=== PATIENT | female | born 1985 | race African-American/Black ===

== ENCOUNTER 2016-05-01 11:58 | Emergency (ER) | payer OTHER ==
[~2016-05-01 11:58] MED LIST: DOCU10CA PO; FERR325T3 PO; FIORCET PO; IBUP80TA PO; IRONTAB3; PERCOCET PO; PRENATAL VITAMIN PO
[2016-05-01] MEDS ORDERED: ASPIRIN 81 MG CHEW TABLET As Ordered ONE (12:36)
--- NOTE | 2016-05-01 12:48 | REP ---
Clinical: Acute chest pain . Comparison: None . Technique: PA and lateral. Findings: The mediastinum and cardiac silhouette are normal. The lung quijano are clear and without acute consolidation, effusion, or pneumothorax. The skeletal structures are intact and normal. Impression: 1. No acute cardiopulmonary process. Signed by Yuriy Ding MD 05/01/2016 12:39 P
[2016-05-01 13:04] LABS: INR 1.05
[2016-05-01 13:15] LABS: BASO % 0.7 % (0.0-1.0); EOS # 0.3 K/mm3 (0.0-0.50); LARGE UNSTAINED CELL # 0.1 K/mm3 (0.0-0.4); LARGE UNSTAINED CELL % 1.8 % (0.0-4.0); LYMPH # 1.3 K/mm3 (1.5-4.5); LYMPH % 24.9 % (24.0-44.0); MEAN CORPUSCULAR HEMOGLOBIN 26.6 pg (27.0-33.0); MEAN CORPUSCULAR HGB CONC 32.2 g/dl (32.0-36.5); MEAN CORPUSCULAR VOLUME 82.7 fl (80.0-96.0); MONO # 0.3 K/mm3 (0.0-0.8); MONO % 4.9 % (0.0-5.0); NEUTROPHILS # 3.1 K/mm3 (1.8-7.7); NEUTROPHILS % 61.6 % (36.0-66.0); PLATELET COUNT, AUTOMATED 153 k/mm3 (150-450); RED CELL DISTRIBUTION WIDTH 14.1 % (11.5-14.5); WHITE BLOOD COUNT 5.1 K/mm3 (4.0-10.0)
[2016-05-01 13:19] LABS: ANION GAP 8 MEQ/L (8-16); BLOOD UREA NITROGEN 10 MG/DL (7-18); CALCIUM LEVEL 9.3 MG/DL (8.5-10.1); CARBON DIOXIDE LEVEL 25 MEQ/L (21-32); CHLORIDE LEVEL 108 MEQ/L (98-107); CREATININE FOR GFR 0.77 MG/DL (0.55-1.02); GLOMERULAR FILTRATION RATE > 60.0 (>60); GLUCOSE, FASTING 81 MG/DL (70-105); MAGNESIUM LEVEL 1.7 MG/DL (1.8-2.4); POTASSIUM SERUM 3.6 MEQ/L (3.5-5.1); SODIUM LEVEL 141 MEQ/L (136-145); T UPTAKE 35 % (30-39); THYROXINE (T4) 8.4 UG/DL (4.5-12.0)
--- NOTE | 2016-05-01 13:48 | EDDOCDS ---
Nurse's Notes [facility] Name: Pinky Diop Age: 30 yrs Sex: Female : 1985 Arrival Date: 05/01/2016 Time: 11:58 Bed 13 Private MD: Mayela Burk L Diagnosis: Chest pain, unspecified Presentation: 05/01 12:08 Presenting complaint: Patient states: Pt presents stating palpations x 3 days has old dls hx of same at 2am this morning developed left sided chest pain radiating down left arm lasted 10 minutes denies pain in triage. Aspirin was not taken prior to arrival. Adult Sepsis Screening: The patient does not have new or worsening altered mentation. Patient's respiratory rate is less than 22. Systolic blood pressure is greater than 100. Patient has a qSOFA score of 0- Negative Sepsis Screen. Suicide/Homicide risk assessment- the patient denies having any suicidal and/or homicidal ideations and does not present with any other emotional, behavioral or mental health complaints. Status: The patient is a dependent. Transition of care: patient was not received from another setting of care. 12:08 Acuity: NELY Level 3 dls 12:08 Method Of Arrival: Walkin/Carried/Asstd dls Triage Assessment: 12:12 General: Appears in no apparent distress, well developed, well nourished, well groomed, dls Behavior is cooperative. Pain: Denies pain. HIV screening NA for this visit Offered previously. MANAGER COMMUNITY RELATIONS: 12:12 LMP 04/13/2016 dls Historical: - Allergies: Benadryl ("makes me feel weird"); - Home Meds: 1. none - PMHx: Migraine Headaches; Seasonal Allergies; - PSHx: ; - Social history: Smoking status: Patient/guardian denies using No barriers to communication noted, The patient speaks fluent Khmer. - Family history: Not pertinent. - : The pt / caregiver states he / she is not on anticoagulants. Home medication list is obtained from the patient. - Exposure Risk Screening:: None identified. Screenin:24 Screening information is obtained from the patient. Fall risk: No risks identified. js13 Assistance ADL's: requires no assistance with activities of daily living. Abuse/DV Screen: The patient / caregiver reports he/she is: not in a situation that causes fear, pain or injury. Nutritional screening: No deficits noted. Advance Directives: There is no active DNR order. home support is adequate. Assessment: 13:31 General: Appears in no apparent distress, comfortable, Behavior is appropriate for age, js13 cooperative. Neurological: Level of Consciousness is awake, alert. Cardiovascular: Rhythm is sinus rhythm Chest pain is denied. Respiratory: Airway is patent Respiratory effort is even, unlabored, Respiratory pattern is regular, symmetrical. Derm: Skin is pink, warm & dry. Vital Signs: 12:00 BP 155 / 74; Pulse 86; Resp 18 S; Temp 97.0(O); Pulse Ox 100% on R/A; Weight 62.14 kg gr2 (R); Height 5 ft. 4 in. (162.56 cm) (R); Pain 0/10; 12:54 BP 150 / 76 (auto/); js13 12:54 Pulse 72 MON; Resp 16; Pulse Ox 100% ; js13 13:24 BP 154 / 77 (auto/); js13 13:24 Pulse 70 MON; Resp 16; Pulse Ox 100% ; js13 12:00 Body Mass Index 23.52 (62.14 kg, 162.56 cm) gr2 Vitals: 12:00 Log In Time: May 01, 2016 at 12:00. gr2 ED Course: 12:00 Patient visited by Ilsa Marques. gr2 12:00 CARLOS MANUEL Hinds is Private Physician. gr2 12:00 Mayela Burk is Private Physician. gr2 12:00 Patient moved to Waiting gr2 12:02 Patient visited by Ilsa Marques. gr2 12:02 Patient moved to Pre RCE gr2 12:11 Triage Initiated dls 12:17 Virginie Lozada,RN is Primary Nurse. deg 12:17 Patient moved to 13 deg 12:18 [facility] ke 12:18 Patient visited by Doug Oconnor FNP. ke 12:18 Patient visited by Doug Oconnor FNP. ke 12:23 EKG done. (by ED staff). Reviewed by Doug RAYMOND. ct3 12:26 Accompanied by Family Member, Patient has correct armband on for positive ct3 identification. Placed in gown. Bed in low position. Call light in reach. Side rails up X2. electronic device monitor on. Pulse ox on. NIBP on. 12:27 Patient visited by Haleigh Mayberry PCA. ct3 12:45 Magnesium Level Sent. jf3 12:45 Thyroid Profile Sent. jf3 12:45 Basic Metabolic Profile Sent. jf3 12:45 CBC with Diff Sent. jf3 12:45 Cardiac Injury Profile Sent. jf3 12:45 Prothrombin Time Profile\\E\\INR Sent. jf3 12:45 Troponin Sent. jf3 12:47 Inserted saline lock: 20 gauge in left antecubital area The patient tolerated the jf3 procedure well. 12:51 Patient visited by Doug Oconnor FNP. ke 12:55 Chest, 2 View (pa\\E\\lat) Returned. EDMS 13:22 Patient visited by Doug Oconnor FNP. ke 13:24 The patient / caregiver is instructed regarding the plan of care and ED course. js13 13:24 No procedures done that require assistance. js13 13:32 Patient visited by Virginie Lozada RN. js13 13:37 Cami Guzman is Referral Physician. ke 13:47 Discontinued IV bleeding controlled, pressure dressing applied, No redness/swelling at ml6 site. Administered Medications: 12:38 Drug: Aspirin 324 mg [aspirin 81 mg chewable tablet (4 tabs)] Route: PO; srm Order Results: Lab Order: Basic Metabolic Profile; SPEC'M 05/01/16 12:43 Test: GLUCOSE, FASTING; Value: 81; Range: 70-105; Units: MG/DL; Status: F Test: BLOOD UREA NITROGEN; Value: 10; Range: 7-18; Units: MG/DL; Status: F Test: CREATININE FOR GFR; Value: 0.77; Range: 0.55-1.02; Units: MG/DL; Status: F Test: GLOMERULAR FILTRATION RATE; Value: > 60.0; Range: >60; Status: F Test: SODIUM LEVEL; Value: 141; Range: 136-145; Units: MEQ/L; Status: F Test: POTASSIUM SERUM; Value: 3.6; Range: 3.5-5.1; Units: MEQ/L; Status: F Test: CHLORIDE LEVEL; Value: 108; Range: 98-107; Abnormal: Above high normal; Units: MEQ/L; Status: F Test: CARBON DIOXIDE LEVEL; Value: 25; Range: 21-32; Units: MEQ/L; Status: F Test: ANION GAP; Value: 8; Range: 8-16; Units: MEQ/L; Status: F Test: CALCIUM LEVEL; Value: 9.3; Range: 8.5-10.1; Units: MG/DL; Status: F Test Note: ; Units are mL/min/1.73 m2 Chronic Kidney Disease Staging per NKF: Stage I & II GFR >=60 Normal to Mildly Decreased Stage III GFR 30-59 Moderately Decreased Stage IV GFR 15-29 Severely Decreased Stage V GFR <15 Very Little GFR Left ESRD GFR <15 on [employer] Lab Order: CBC with Diff; SPEC'M 05/01/16 12:43 Test: WHITE BLOOD COUNT; Value: 5.1; Range: 4.0-10.0; Units: K/mm3; Status: F Test: RED BLOOD COUNT; Value: 4.61; Range: 4.00-5.40; Units: M/mm3; Status: F Test: HEMOGLOBIN; Value: 12.3; Range: 12.0-16.0; Units: g/dl; Status: F Test: HEMATOCRIT; Value: 38.1; Range: 36.0-47.0; Units: %; Status: F Test: MEAN CORPUSCULAR VOLUME; Value: 82.7; Range: 80.0-96.0; Units: fl; Status: F Test: MEAN CORPUSCULAR HEMOGLOBIN; Value: 26.6; Range: 27.0-33.0; Abnormal: Below low normal; Units: pg; Status: F Test: MEAN CORPUSCULAR HGB CONC; Value: 32.2; Range: 32.0-36.5; Units: g/dl; Status: F Test: RED CELL DISTRIBUTION WIDTH; Value: 14.1; Range: 11.5-14.5; Units: %; Status: F Test: PLATELET COUNT, AUTOMATED; Value: 153; Range: 150-450; Units: k/mm3; Status: F Test: NEUTROPHILS %; Value: 61.6; Range: 36.0-66.0; Units: %; Status: F Test: LYMPH %; Value: 24.9; Range: 24.0-44.0; Units: %; Status: F Test: MONO %; Value: 4.9; Range: 0.0-5.0; Units: %; Status: F Test: EOS %; Value: 6.0; Range: 0.0-3.0; Abnormal: Above high normal; Units: %; Status: F Test: BASO %; Value: 0.7; Range: 0.0-1.0; Units: %; Status: F Test: LARGE UNSTAINED CELL %; Value: 1.8; Range: 0.0-4.0; Units: %; Status: F Test: NEUTROPHILS #; Value: 3.1; Range: 1.8-7.7; Units: K/mm3; Status: F Test: LYMPH #; Value: 1.3; Range: 1.5-4.5; Abnormal: Below low normal; Units: K/mm3; Status: F Test: MONO #; Value: 0.3; Range: 0.0-0.8; Units: K/mm3; Status: F Test: EOS #; Value: 0.3; Range: 0.0-0.50; Units: K/mm3; Status: F Test: BASO #; Value: 0.0; Range: 0.0-0.2; Units: K/mm3; Status: F Test: LARGE UNSTAINED CELL #; Value: 0.1; Range: 0.0-0.4; Units: K/mm3; Status: F Lab Order: Cardiac Injury Profile; SPEC'M 05/01/16 12:43 Test: CPK CREATINE PHOSPHOKINASE; Value: 71; Range: 26-192; Units: U/L; Status: F Test: CK-MB VALUE MASS; Value: 1.0; Range: 0.0-3.6; Units: NG/ML; Status: F Test: MB/CK RELATIVE INDEX; Value: 1.40; Range: < OR =4; Status: F Test Note: ; DIAGNOSIS CRITERIA MMB ng/ml Relative Index (RI) NON-AMI < or = 5 N/A BOYCE ZONE > 5 < or = 4 AMI > 5 > 4 Lab Order: Prothrombin Time Profile\\E\\INR; SPEC'M 05/01/16 12:43 Test: PROTHROMBIN TIME; Value: 13.8; Range: 12.3-14.5; Units: SECONDS; Status: F Test: INR; Value: 1.05; Status: F Test Note: ; THERAPUTIC HUMAN INR VALUES INDICATIONS NORMAL RANGES PROPHYLAXIS/TREATMENT OF: VENOUS THROMBOSIS 2.0-3.0 PULMONARY EMBOLISM 2.0-3.0 PREVENTION OF SYSTEMIC EMBOLISM FROM: TISSUE HEART VALVES 2.0-3.0 ACUTE MYOCARDIAL INFARCTION 2.0-3.0 VALVULAR HEART DISEASE 2.0-3.0 ATRIAL FIBRILLATION 2.0-3.0 MECHANICAL VALVES(HIGH RISK) 2.5-3.5 RECURRENT MYOCARDIAL INFARCTION 2.5-3.5 Lab Order: Troponin; SPEC'M 05/01/16 12:43 Test: TROPONIN I; Value: < 0.02; Range: < 0.10; Units: NG/ML; Status: F Test Note: ; Troponin I Reference Interval for [employer] LOCI: 99th Percentile= 0.00-0.045 ng/ml Risk Stratification: <= 0.10 ng/ml Decreased Risk for Adverse Clinical Events. 0.10-1.50 ng/ml Increased Risk for Adverse Clinical Events. Evaluation of additional criterion and/or repeat testing in 2-6 hours is suggested to rule out myocardial damage. >= 1.50 ng/ml Indicative of Myocardial Injury. Lab Order: Thyroid Profile; SPEC'M 05/01/16 12:43 Test: T UPTAKE; Value: 35; Range: 30-39; Units: %; Status: F Test: THYROXINE (T4); Value: 8.4; Range: 4.5-12.0; Units: UG/DL; Status: F Test: FREE THYROXINE INDEX; Value: 2.9; Range: 1.3-4.8; Units: %; Status: F Test: THYROID STIMULATING HORMONE; Value: 1.930; Range: 0.358-3.740; Units: uIU/ML; Status: F Lab Order: Magnesium Level; SPEC'M 05/01/16 12:43 Test: MAGNESIUM LEVEL; Value: 1.7; Range: 1.8-2.4; Abnormal: Below low normal; Units: MG/DL; Status: F Radiology Order: Chest, 2 View (pa\\E\\lat) Test: Chest, 2 View (pa\\E\\lat) REASON FOR EXAMINATION: Chest Pain; Clinical: Acute chest pain .; ; Comparison: None .; ; Technique: PA and lateral.; ; Findings:; The mediastinum and cardiac silhouette are normal. The lung quijano are clear and; without acute consolidation, effusion, or pneumothorax. The skeletal structures; are intact and normal.; ; Impression:; 1. No acute cardiopulmonary process.; ; ; Signed by; Yuriy Ding MD 05/01/2016 12:39 P; Outcome: 13:37 Discharge ordered by Provider. anand 13:47 Discharge Assessment: patient administered narcotics - no. The following High Risk ml6 Discharge criteria are identified: None. Discharged to home ambulatory, with significant other. Condition: improved. Discharge instructions given to patient, Instructed on discharge instructions, follow up and referral plans. medication usage, Demonstrated understanding of instructions, medications, Pt was receptive of discharge instructions/ teaching. Prescriptions given X 1. No special radiology studies were completed. Property sent home with patient. :Personal belongings accompany Pt. 13:48 Patient left the ED. ml6 Signatures: Dispatcher [employer] EDMS Mae Loomis, Bait Tier Unit deg Katy Kahn, RN RN Francia Cantu RN RN dls Doug Oconnor, CRADLE SLIDE MAKER CRADLE SLIDE MAKER Agustin Solitario RN RN ml6 Haleigh Mayberry, ACCOUNT SERVICES ASSOCIATE ACCOUNT SERVICES ASSOCIATE ct3 Virginie Lozada,RN RN js13 Ilsa Marques gr2 Rickie Lane,RN RN jf3 MTDD
--- NOTE | 2016-05-01 13:48 | EDDOCDS ---
Physician Documentation [facility] Name: Pinky Diop Age: 30 yrs Sex: Female : 1985 Arrival Date: 05/01/2016 Time: 11:58 Bed 13 Private MD: Mayela Burk L Disposition: 05/01/16 13:37 Discharged to Home/Self Care. Impression: Chest pain, unspecified. - Condition is Stable. - Discharge Instructions: Nonspecific Chest Pain. - Prescriptions for Prilosec 20 mg Oral Capsule - take 1 capsule by ORAL route once daily; 10 capsule. - Medication Reconciliation, Local Pharmacy Hours form. - Follow up: Cami Guzman; When: Call to arrange an appointment; Reason: Further diagnostic work-up, Recheck today's complaints, Continuance of care. - Problem is an ongoing problem. - Symptoms are unchanged. Historical: - Allergies: Benadryl ("makes me feel weird"); - Home Meds: 1. none - PMHx: Migraine Headaches; Seasonal Allergies; - PSHx: ; - Social history: Smoking status: Patient/guardian denies using No barriers to communication noted, The patient speaks fluent Andorran. - Family history: Not pertinent. - : The pt / caregiver states he / she is not on anticoagulants. Home medication list is obtained from the patient. - Exposure Risk Screening:: None identified. THERMODYNAMICIST: 05/01 12:12 LMP 04/13/2016 dls Vital Signs: 12:00 BP 155 / 74; Pulse 86; Resp 18 S; Temp 97.0(O); Pulse Ox 100% on R/A; Weight 62.14 kg / gr2 137 lbs (R); Height 5 ft. 4 in. (162.56 cm) (R); Pain 0/10; 12:54 BP 150 / 76 (auto/); js13 12:54 Pulse 72 MON; Resp 16; Pulse Ox 100% ; js13 13:24 BP 154 / 77 (auto/); js13 13:24 Pulse 70 MON; Resp 16; Pulse Ox 100% ; js13 12:00 Body Mass Index 23.52 (62.14 kg, 162.56 cm) gr2 MDM: 12:16 ECG WITH READING ER PHYS+CARDIAG ordered. EDMS 12:22 Aspirin Chewable Tablet 324 mg PO once ordered. ke 12:22 Assistant Administrator/Pulse Ox/q 30 min VS ordered. ke 12:22 IV Saline Lock ordered. ke 12:22 Rhythm Strip to chart ordered. ke 12:22 Undress patient appropriately for examination ordered. ke 12:23 Basic Metabolic Profile Ordered. EDMS 12:23 CBC with Diff Ordered. EDMS 12:23 Cardiac Injury Profile Ordered. EDMS 12:23 Prothrombin Time Profile\\E\\INR Ordered. EDMS 12:23 Troponin Ordered. EDMS 12:23 Thyroid Profile Ordered. EDMS 12:23 Magnesium Level Ordered. EDMS 12:23 Chest, 2 View (pa\\E\\lat) Ordered. EDMS 13:33 Basic Metabolic Profile Reviewed. ke 13:33 CBC with Diff Reviewed. ke 13:33 Magnesium Level Reviewed. ke 13:33 Cardiac Injury Profile Reviewed. ke 13:33 Prothrombin Time Profile\\E\\INR Reviewed. ke 13:33 Troponin Reviewed. ke 13:33 Thyroid Profile Reviewed. ke 13:33 Chest, 2 View (pa\\E\\lat) Reviewed. ke Administered Medications: 12:38 Drug: Aspirin 324 mg [aspirin 81 mg chewable tablet (4 tabs)] Route: PO; srm Signatures: Dispatcher [employer] Francia Fan RN RN dls Elsner, Karl, GLASS ROBOT OPERATOR Agustin Candelario RN RN ml6 Virginie Lozada RN RN js13 Katy Kahn RN srm MTDD
--- NOTE | 2016-05-02 08:05 | ECGEPIP ---
Stationary ECG Study [facility] - ED Test Date: 2016-05-01 Pat Name: ANA PAULA RUSSO Department: Room: - Gender: F Core Shaper Top: ct : 1985 Requested By: MELANIE Swan Order Number: [id number] Reading MD: Alma Garces Measurements Intervals [place] Rate: 77 P: 52 VA: 145 QRS: 61 QRSD: 88 T: 41 QT: 344 QTc: 391 Interpretive Statements SINUS RHYTHM NONSPECIFIC T-WAVE ABNORMALITY NO PRIOR FOR COMPARISON Electronically Signed On 05-02-2016 8:05:19 EST by Alma Garces
--- NOTE | 2016-05-03 14:48 | EDDOCDS ---
Nurse's Notes [facility] Name: Pinky Russo Age: 30 yrs Sex: Female : 1985 Arrival Date: 05/01/2016 Time: 11:58 Bed 13 Private MD: Mayela Burk L Diagnosis: Chest pain, unspecified Presentation: 05/01 12:08 Presenting complaint: Patient states: Pt presents stating palpations x 3 days has old dls hx of same at 2am this morning developed left sided chest pain radiating down left arm lasted 10 minutes denies pain in triage. Aspirin was not taken prior to arrival. Adult Sepsis Screening: The patient does not have new or worsening altered mentation. Patient's respiratory rate is less than 22. Systolic blood pressure is greater than 100. Patient has a qSOFA score of 0- Negative Sepsis Screen. Suicide/Homicide risk assessment- the patient denies having any suicidal and/or homicidal ideations and does not present with any other emotional, behavioral or mental health complaints. Status: The patient is a dependent. Transition of care: patient was not received from another setting of care. 12:08 Acuity: NELY Level 3 dls 12:08 Method Of Arrival: Walkin/Carried/Asstd dls Triage Assessment: 12:12 General: Appears in no apparent distress, well developed, well nourished, well groomed, dls Behavior is cooperative. Pain: Denies pain. HIV screening NA for this visit Offered previously. BI TECHNICAL LEAD: 12:12 LMP 04/13/2016 dls Historical: - Allergies: Benadryl ("makes me feel weird"); - Home Meds: 1. none - PMHx: Migraine Headaches; Seasonal Allergies; - PSHx: ; - Social history: Smoking status: Patient/guardian denies using No barriers to communication noted, The patient speaks fluent Sinhala. - Family history: Not pertinent. - : The pt / caregiver states he / she is not on anticoagulants. Home medication list is obtained from the patient. - Exposure Risk Screening:: None identified. Screenin:24 Screening information is obtained from the patient. Fall risk: No risks identified. js13 Assistance ADL's: requires no assistance with activities of daily living. Abuse/DV Screen: The patient / caregiver reports he/she is: not in a situation that causes fear, pain or injury. Nutritional screening: No deficits noted. Advance Directives: There is no active DNR order. home support is adequate. Assessment: 13:31 General: Appears in no apparent distress, comfortable, Behavior is appropriate for age, js13 cooperative. Neurological: Level of Consciousness is awake, alert. Cardiovascular: Rhythm is sinus rhythm Chest pain is denied. Respiratory: Airway is patent Respiratory effort is even, unlabored, Respiratory pattern is regular, symmetrical. Derm: Skin is pink, warm & dry. Vital Signs: 12:00 BP 155 / 74; Pulse 86; Resp 18 S; Temp 97.0(O); Pulse Ox 100% on R/A; Weight 62.14 kg gr2 (R); Height 5 ft. 4 in. (162.56 cm) (R); Pain 0/10; 12:54 BP 150 / 76 (auto/); js13 12:54 Pulse 72 MON; Resp 16; Pulse Ox 100% ; js13 13:24 BP 154 / 77 (auto/); js13 13:24 Pulse 70 MON; Resp 16; Pulse Ox 100% ; js13 12:00 Body Mass Index 23.52 (62.14 kg, 162.56 cm) gr2 Vitals: 12:00 Log In Time: May 01, 2016 at 12:00. gr2 ED Course: 12:00 Patient visited by Ilsa Marques. gr2 12:00 CARLOS MANUEL Hinds is Private Physician. gr2 12:00 Mayela Burk is Private Physician. gr2 12:00 Patient moved to Waiting gr2 12:02 Patient visited by Ilsa Marques. gr2 12:02 Patient moved to Pre RCE gr2 12:11 Triage Initiated dls 12:17 Virginie Lozada,RN is Primary Nurse. deg 12:17 Patient moved to 13 deg 12:18 [facility] ke 12:18 Patient visited by Doug Oconnor FNP. ke 12:18 Patient visited by Doug Oconnor FNP. ke 12:23 EKG done. (by ED staff). Reviewed by Doug RAYMOND. ct3 12:26 Accompanied by Family Member, Patient has correct armband on for positive ct3 identification. Placed in gown. Bed in low position. Call light in reach. Side rails up X2. monitor and storage bin tender on. Pulse ox on. NIBP on. 12:27 Patient visited by Haleigh Mayberry PCA. ct3 12:45 Magnesium Level Sent. jf3 12:45 Thyroid Profile Sent. jf3 12:45 Basic Metabolic Profile Sent. jf3 12:45 CBC with Diff Sent. jf3 12:45 Cardiac Injury Profile Sent. jf3 12:45 Prothrombin Time Profile\\E\\INR Sent. jf3 12:45 Troponin Sent. jf3 12:47 Inserted saline lock: 20 gauge in left antecubital area The patient tolerated the jf3 procedure well. 12:51 Patient visited by Doug Oconnor FNP. ke 12:55 Chest, 2 View (pa\\E\\lat) Returned. EDMS 13:22 Patient visited by Doug Oconnor FNP. ke 13:24 The patient / caregiver is instructed regarding the plan of care and ED course. js13 13:24 No procedures done that require assistance. js13 13:32 Patient visited by Virginie Lozada RN. js13 13:37 Cami Guzman is Referral Physician. ke 13:47 Discontinued IV bleeding controlled, pressure dressing applied, No redness/swelling at ml6 site. 14:35 T-Sheet-- Draft Copy was scanned into [employer] and attached to record. gb 14:36 ECG/EKG was scanned into [employer] and attached to record. gb 15:27 [facility] Payment Agreement was scanned into [employer] and attached to record. 05/02 08:36 EKG-ADULT Returned. EDMS Administered Medications: 05/01 12:38 Drug: Aspirin 324 mg [aspirin 81 mg chewable tablet (4 tabs)] Route: PO; srm Order Results: Lab Order: Basic Metabolic Profile; SPEC'M 05/01/16 12:43 Test: GLUCOSE, FASTING; Value: 81; Range: 70-105; Units: MG/DL; Status: F Test: BLOOD UREA NITROGEN; Value: 10; Range: 7-18; Units: MG/DL; Status: F Test: CREATININE FOR GFR; Value: 0.77; Range: 0.55-1.02; Units: MG/DL; Status: F Test: GLOMERULAR FILTRATION RATE; Value: > 60.0; Range: >60; Status: F Test: SODIUM LEVEL; Value: 141; Range: 136-145; Units: MEQ/L; Status: F Test: POTASSIUM SERUM; Value: 3.6; Range: 3.5-5.1; Units: MEQ/L; Status: F Test: CHLORIDE LEVEL; Value: 108; Range: 98-107; Abnormal: Above high normal; Units: MEQ/L; Status: F Test: CARBON DIOXIDE LEVEL; Value: 25; Range: 21-32; Units: MEQ/L; Status: F Test: ANION GAP; Value: 8; Range: 8-16; Units: MEQ/L; Status: F Test: CALCIUM LEVEL; Value: 9.3; Range: 8.5-10.1; Units: MG/DL; Status: F Test Note: ; Units are mL/min/1.73 m2 Chronic Kidney Disease Staging per NKF: Stage I & II GFR >=60 Normal to Mildly Decreased Stage III GFR 30-59 Moderately Decreased Stage IV GFR 15-29 Severely Decreased Stage V GFR <15 Very Little GFR Left ESRD GFR <15 on TECHNICAL SUPPORT ANALYST Lab Order: CBC with Diff; SPEC'M 05/01/16 12:43 Test: WHITE BLOOD COUNT; Value: 5.1; Range: 4.0-10.0; Units: K/mm3; Status: F Test: RED BLOOD COUNT; Value: 4.61; Range: 4.00-5.40; Units: M/mm3; Status: F Test: HEMOGLOBIN; Value: 12.3; Range: 12.0-16.0; Units: g/dl; Status: F Test: HEMATOCRIT; Value: 38.1; Range: 36.0-47.0; Units: %; Status: F Test: MEAN CORPUSCULAR VOLUME; Value: 82.7; Range: 80.0-96.0; Units: fl; Status: F Test: MEAN CORPUSCULAR HEMOGLOBIN; Value: 26.6; Range: 27.0-33.0; Abnormal: Below low normal; Units: pg; Status: F Test: MEAN CORPUSCULAR HGB CONC; Value: 32.2; Range: 32.0-36.5; Units: g/dl; Status: F Test: RED CELL DISTRIBUTION WIDTH; Value: 14.1; Range: 11.5-14.5; Units: %; Status: F Test: PLATELET COUNT, AUTOMATED; Value: 153; Range: 150-450; Units: k/mm3; Status: F Test: NEUTROPHILS %; Value: 61.6; Range: 36.0-66.0; Units: %; Status: F Test: LYMPH %; Value: 24.9; Range: 24.0-44.0; Units: %; Status: F Test: MONO %; Value: 4.9; Range: 0.0-5.0; Units: %; Status: F Test: EOS %; Value: 6.0; Range: 0.0-3.0; Abnormal: Above high normal; Units: %; Status: F Test: BASO %; Value: 0.7; Range: 0.0-1.0; Units: %; Status: F Test: LARGE UNSTAINED CELL %; Value: 1.8; Range: 0.0-4.0; Units: %; Status: F Test: NEUTROPHILS #; Value: 3.1; Range: 1.8-7.7; Units: K/mm3; Status: F Test: LYMPH #; Value: 1.3; Range: 1.5-4.5; Abnormal: Below low normal; Units: K/mm3; Status: F Test: MONO #; Value: 0.3; Range: 0.0-0.8; Units: K/mm3; Status: F Test: EOS #; Value: 0.3; Range: 0.0-0.50; Units: K/mm3; Status: F Test: BASO #; Value: 0.0; Range: 0.0-0.2; Units: K/mm3; Status: F Test: LARGE UNSTAINED CELL #; Value: 0.1; Range: 0.0-0.4; Units: K/mm3; Status: F Lab Order: Cardiac Injury Profile; SPEC'M 05/01/16 12:43 Test: CPK CREATINE PHOSPHOKINASE; Value: 71; Range: 26-192; Units: U/L; Status: F Test: CK-MB VALUE MASS; Value: 1.0; Range: 0.0-3.6; Units: NG/ML; Status: F Test: MB/CK RELATIVE INDEX; Value: 1.40; Range: < OR =4; Status: F Test Note: ; DIAGNOSIS CRITERIA MMB ng/ml Relative Index (RI) NON-AMI < or = 5 N/A BOYCE ZONE > 5 < or = 4 AMI > 5 > 4 Lab Order: Prothrombin Time Profile\\E\\INR; [facility]' 05/01/16 12:43 Test: PROTHROMBIN TIME; Value: 13.8; Range: 12.3-14.5; Units: SECONDS; Status: F Test: INR; Value: 1.05; Status: F Test Note: ; THERAPUTIC HUMAN INR VALUES INDICATIONS NORMAL RANGES PROPHYLAXIS/TREATMENT OF: VENOUS THROMBOSIS 2.0-3.0 PULMONARY EMBOLISM 2.0-3.0 PREVENTION OF SYSTEMIC EMBOLISM FROM: TISSUE HEART VALVES 2.0-3.0 ACUTE MYOCARDIAL INFARCTION 2.0-3.0 VALVULAR HEART DISEASE 2.0-3.0 ATRIAL FIBRILLATION 2.0-3.0 MECHANICAL VALVES(HIGH RISK) 2.5-3.5 RECURRENT MYOCARDIAL INFARCTION 2.5-3.5 Lab Order: Troponin; SPEC05/01/16 12:43 Test: TROPONIN I; Value: < 0.02; Range: < 0.10; Units: NG/ML; Status: F Test Note: ; Troponin I Reference Interval for [employer] LOCI: 99th Percentile= 0.00-0.045 ng/ml Risk Stratification: <= 0.10 ng/ml Decreased Risk for Adverse Clinical Events. 0.10-1.50 ng/ml Increased Risk for Adverse Clinical Events. Evaluation of additional criterion and/or repeat testing in 2-6 hours is suggested to rule out myocardial damage. >= 1.50 ng/ml Indicative of Myocardial Injury. Lab Order: Thyroid Profile; SPEC'M 05/01/16 12:43 Test: T UPTAKE; Value: 35; Range: 30-39; Units: %; Status: F Test: THYROXINE (T4); Value: 8.4; Range: 4.5-12.0; Units: UG/DL; Status: F Test: FREE THYROXINE INDEX; Value: 2.9; Range: 1.3-4.8; Units: %; Status: F Test: THYROID STIMULATING HORMONE; Value: 1.930; Range: 0.358-3.740; Units: uIU/ML; Status: F Lab Order: Magnesium Level; [facility] 05/01/16 12:43 Test: MAGNESIUM LEVEL; Value: 1.7; Range: 1.8-2.4; Abnormal: Below low normal; Units: MG/DL; Status: F Radiology Order: EKG-ADULT Test: EKG-ADULT REASON FOR EXAMINATION: Chest Pain; Stationary ECG Study; [facility] - ED; ; Test Date: 2016-05-01; Pat Name: PINKY RUSSO Department:; Room: -; Gender: F Mechanical Insulator: ct; : 1985 Requested By: MELANIE Swan; Order Number: [id number] Reading MD: Alma Garces; Measurements; Intervals [place]; Rate: 77 P: 52; WV: 145 QRS: 61; QRSD: 88 T: 41; QT: 344; QTc: 391; Interpretive Statements; SINUS RHYTHM; NONSPECIFIC T-WAVE ABNORMALITY; NO PRIOR FOR COMPARISON; Electronically Signed On 05-02-2016 8:05:19 EST by Alma Garces; Radiology Order: Chest, 2 View (pa\\E\\lat) Test: Chest, 2 View (pa\\E\\lat) REASON FOR EXAMINATION: Chest Pain; Clinical: Acute chest pain .; ; Comparison: None .; ; Technique: PA and lateral.; ; Findings:; The mediastinum and cardiac silhouette are normal. The lung quijano are clear and; without acute consolidation, effusion, or pneumothorax. The skeletal structures; are intact and normal.; ; Impression:; 1. No acute cardiopulmonary process.; ; ; Signed by; Yuriy Ding MD 05/01/2016 12:39 P; Outcome: 13:37 Discharge ordered by Provider. anand 13:47 Discharge Assessment: patient administered narcotics - no. The following High Risk ml6 Discharge criteria are identified: None. Discharged to home ambulatory, with significant other. Condition: improved. Discharge instructions given to patient, Instructed on discharge instructions, follow up and referral plans. medication usage, Demonstrated understanding of instructions, medications, Pt was receptive of discharge instructions/ teaching. Prescriptions given X 1. No special radiology studies were completed. Property sent home with patient. :Personal belongings accompany Pt. 13:48 Patient left the ED. ml6 Signatures: Dispatcher [employer] Mae Barreto, Sealer Operator Unit deg Katy Kahn, RN RN srm Reyes, Francia, RN RN dls Nicole Bedolla, Reg Reg gb Brad Covarrubias, Reg Reg lg Doug Oconnor, FREIGHT RECEIVER FREIGHT RECEIVER Agustin Solitario RN RN ml6 Jefe, Haleigh, INSPECTOR EXHAUST EMISSIONS INSPECTOR EXHAUST EMISSIONS ct3 Virginie Lozada RN RN js13 Ilsa Marques gr2 Rickie Lane RN RN jf3 Chart Complete MTDD
--- NOTE | 2016-05-03 14:48 | EDDOCDS ---
Physician Documentation [facility] Name: Pinky Diop Age: 30 yrs Sex: Female : 1985 Arrival Date: 05/01/2016 Time: 11:58 Bed 13 Private MD: Mayela Burk L Disposition: 05/01/16 13:37 Discharged to Home/Self Care. Impression: Chest pain, unspecified. - Condition is Stable. - Discharge Instructions: Nonspecific Chest Pain. - Prescriptions for Prilosec 20 mg Oral Capsule - take 1 capsule by ORAL route once daily; 10 capsule. - Medication Reconciliation, Local Pharmacy Hours form. - Follow up: Cami Guzman; When: Call to arrange an appointment; Reason: Further diagnostic work-up, Recheck today's complaints, Continuance of care. - Problem is an ongoing problem. - Symptoms are unchanged. Historical: - Allergies: Benadryl ("makes me feel weird"); - Home Meds: 1. none - PMHx: Migraine Headaches; Seasonal Allergies; - PSHx: ; - Social history: Smoking status: Patient/guardian denies using No barriers to communication noted, The patient speaks fluent Lebanese. - Family history: Not pertinent. - : The pt / caregiver states he / she is not on anticoagulants. Home medication list is obtained from the patient. - Exposure Risk Screening:: None identified. CERTIFIED OPHTHALMIC MEDICAL TECHNICIAN: 05/01 12:12 LMP 04/13/2016 dls Vital Signs: 12:00 BP 155 / 74; Pulse 86; Resp 18 S; Temp 97.0(O); Pulse Ox 100% on R/A; Weight 62.14 kg / gr2 137 lbs (R); Height 5 ft. 4 in. (162.56 cm) (R); Pain 0/10; 12:54 BP 150 / 76 (auto/); js13 12:54 Pulse 72 MON; Resp 16; Pulse Ox 100% ; js13 13:24 BP 154 / 77 (auto/); js13 13:24 Pulse 70 MON; Resp 16; Pulse Ox 100% ; js13 12:00 Body Mass Index 23.52 (62.14 kg, 162.56 cm) gr2 MDM: 12:16 ECG WITH READING ER PHYS+CARDIAG ordered. EDMS 12:22 Aspirin Chewable Tablet 324 mg PO once ordered. ke 12:22 Talent Program Manager/Pulse Ox/q 30 min VS ordered. ke 12:22 IV Saline Lock ordered. ke 12:22 Rhythm Strip to chart ordered. ke 12:22 Undress patient appropriately for examination ordered. ke 12:23 Basic Metabolic Profile Ordered. EDMS 12:23 CBC with Diff Ordered. EDMS 12:23 Cardiac Injury Profile Ordered. EDMS 12:23 Prothrombin Time Profile\\E\\INR Ordered. EDMS 12:23 Troponin Ordered. EDMS 12:23 Thyroid Profile Ordered. EDMS 12:23 Magnesium Level Ordered. EDMS 12:23 Chest, 2 View (pa\\E\\lat) Ordered. EDMS 13:33 Basic Metabolic Profile Reviewed. ke 13:33 CBC with Diff Reviewed. ke 13:33 Magnesium Level Reviewed. ke 13:33 Cardiac Injury Profile Reviewed. ke 13:33 Prothrombin Time Profile\\E\\INR Reviewed. ke 13:33 Troponin Reviewed. ke 13:33 Thyroid Profile Reviewed. ke 13:33 Chest, 2 View (pa\\E\\lat) Reviewed. ke 14:35 T-Sheet-- Draft Copy was scanned into [employer] and attached to record. gb 14:36 ECG/EKG was scanned into [employer] and attached to record. gb 15:27 [facility] Payment Agreement was scanned into [employer] and attached to record. lg Administered Medications: 12:38 Drug: Aspirin 324 mg [aspirin 81 mg chewable tablet (4 tabs)] Route: PO; srm Signatures: Dispatcher [employer] EDFrancia Hernandez RN RN dls Barnhardt, Gloria, Reg Reg gb Brad Covarrubias, Reg Reg Doug Oconnor, CONTENT DEVELOPER CONTENT DEVELOPER Agustin Solitario RN RN ml6 Virginie Lozada RN RN js13 Katy Kahn RN srm The chart was reviewed and I authenticate all verbal orders and agree with the evaluation and treatment provided.Attachments: 14:35 T-Sheet-- Draft Copy gb 14:36 ECG/EKG gb 15:27 [facility] Payment Agreement lg Chart Complete MTDD
--- NOTE | 2016-05-03 14:48 | EDDOCDS ---
Physician Documentation [facility] Name: Pinky Diop Age: 30 yrs Sex: Female : 1985 Arrival Date: 05/01/2016 Time: 11:58 Bed 13 Private MD: Mayela Burk L Disposition: 05/01/16 13:37 Discharged to Home/Self Care. Impression: Chest pain, unspecified. - Condition is Stable. - Discharge Instructions: Nonspecific Chest Pain. - Prescriptions for Prilosec 20 mg Oral Capsule - take 1 capsule by ORAL route once daily; 10 capsule. - Medication Reconciliation, Local Pharmacy Hours form. - Follow up: Cami Guzman; When: Call to arrange an appointment; Reason: Further diagnostic work-up, Recheck today's complaints, Continuance of care. - Problem is an ongoing problem. - Symptoms are unchanged. Historical: - Allergies: Benadryl ("makes me feel weird"); - Home Meds: 1. none - PMHx: Migraine Headaches; Seasonal Allergies; - PSHx: ; - Social history: Smoking status: Patient/guardian denies using No barriers to communication noted, The patient speaks fluent Thai. - Family history: Not pertinent. - : The pt / caregiver states he / she is not on anticoagulants. Home medication list is obtained from the patient. - Exposure Risk Screening:: None identified. MIXING OPERATOR: 05/01 12:12 LMP 04/13/2016 dls Vital Signs: 12:00 BP 155 / 74; Pulse 86; Resp 18 S; Temp 97.0(O); Pulse Ox 100% on R/A; Weight 62.14 kg / gr2 137 lbs (R); Height 5 ft. 4 in. (162.56 cm) (R); Pain 0/10; 12:54 BP 150 / 76 (auto/); js13 12:54 Pulse 72 MON; Resp 16; Pulse Ox 100% ; js13 13:24 BP 154 / 77 (auto/); js13 13:24 Pulse 70 MON; Resp 16; Pulse Ox 100% ; js13 12:00 Body Mass Index 23.52 (62.14 kg, 162.56 cm) gr2 MDM: 12:16 ECG WITH READING ER PHYS+CARDIAG ordered. EDMS 12:22 Aspirin Chewable Tablet 324 mg PO once ordered. ke 12:22 Packing Supervisor/Pulse Ox/q 30 min VS ordered. ke 12:22 IV Saline Lock ordered. ke 12:22 Rhythm Strip to chart ordered. ke 12:22 Undress patient appropriately for examination ordered. ke 12:23 Basic Metabolic Profile Ordered. EDMS 12:23 CBC with Diff Ordered. EDMS 12:23 Cardiac Injury Profile Ordered. EDMS 12:23 Prothrombin Time Profile\\E\\INR Ordered. EDMS 12:23 Troponin Ordered. EDMS 12:23 Thyroid Profile Ordered. EDMS 12:23 Magnesium Level Ordered. EDMS 12:23 Chest, 2 View (pa\\E\\lat) Ordered. EDMS 13:33 Basic Metabolic Profile Reviewed. ke 13:33 CBC with Diff Reviewed. ke 13:33 Magnesium Level Reviewed. ke 13:33 Cardiac Injury Profile Reviewed. ke 13:33 Prothrombin Time Profile\\E\\INR Reviewed. ke 13:33 Troponin Reviewed. ke 13:33 Thyroid Profile Reviewed. ke 13:33 Chest, 2 View (pa\\E\\lat) Reviewed. ke 14:35 T-Sheet-- Draft Copy was scanned into [employer] and attached to record. gb 14:36 ECG/EKG was scanned into [employer] and attached to record. gb 15:27 [facility] Payment Agreement was scanned into [employer] and attached to record. lg Administered Medications: 12:38 Drug: Aspirin 324 mg [aspirin 81 mg chewable tablet (4 tabs)] Route: PO; srm Signatures: Dispatcher [employer] EDFrancia Hernandez RN RN dls Barnhardt, Gloria, Reg Reg gb Brad Covarrubias, Reg Reg Doug Oconnor, SPARES SCHEDULER SPARES SCHEDULER Agustin Solitario RN RN ml6 Virginie Lozada RN RN js13 Katy Kahn RN srm The chart was reviewed and I authenticate all verbal orders and agree with the evaluation and treatment provided.Attachments: 14:35 T-Sheet-- Draft Copy gb 14:36 ECG/EKG gb 15:27 [facility] Payment Agreement lg Chart Complete MTDD
== END 2016-05-01 13:48 | disposition home or self-care (01) ==
LOC: M ED 11:58
DX: R07.9 Chest pain, unspecified (principal); G43.909 Migraine, unspecified, not intractable, without status migrainosus; J30.9 Allergic rhinitis, unspecified; Z88.8 Allergy status to other drugs, medicaments and biological substances

== ENCOUNTER 2016-11-05 17:32 | Emergency (ER) | payer OTHER ==
[~2016-11-05] VITALS: Ht 162.6 cm; Wt 62.2 kg
[2016-11-05 17:33] VITALS: BP 149/86
[2016-11-05] MEDS ORDERED: NAPR1TAB86 PO (17:52)
[2016-11-05] MEDS ORDERED: MULTTAB PO (17:52)
[2016-11-05] MEDS ORDERED: ROBA500T PO (17:52)
[2016-11-05] MEDS ORDERED: BACTRIM 160MG/800MG DS TAB PO ONE (21:15)
[2016-11-05] MEDS ORDERED: PHENAZOPYRIDINE 100 MG TAB PO ONE (21:15)
[2016-11-05] MEDS ORDERED: PYRI1TAB5 PO (21:17)
[2016-11-05] MEDS ORDERED: BACT800T5 PO (21:17)
--- NOTE | 2016-11-06 01:17 | REP ---
Clinical: Nephrolithiasis. Technique: Single supine view of the abdomen and pelvis. Findings: No obvious urinary tract calcifications are appreciated. However, evaluation is somewhat limited due to overlying bowel gas. No evidence for bowel obstruction. Moderate fecal stasis suggested. Skeletal structures are intact. IUD within the midline pelvis. Impression: Moderate fecal stasis. Evaluation for urinary tract calcifications is limited due to technique. Consider noncontrast CT of the abdomen and pelvis if necessary. Signed by Yuriy Ding MD 11/06/2016 01:08 A
== END 2016-11-05 21:48 | disposition home or self-care (01) ==
LOC: M ED 17:32
DX: N30.00 Acute cystitis without hematuria (principal)